=== PATIENT | male | born 1965 | race Hispanic/Latino ===

== ENCOUNTER 2017-09-09 08:11 | Emergency (ER) | payer BC ==
[2017-09-09 08:23] VITALS: BMI 31.6
[2017-09-09 08:24] VITALS: TEMP 97.9
--- NOTE | 2017-09-09 08:45 | ED PDOC ---
Arrival/HPI - General Chief Complaint: High Blood Pressure Time Seen by Provider: 09/09/17 08:25 Historian: Patient - History of Present Illness Narrative History of Present Illness (Text): 09/09/17 08:38 52 year old male, with past medical history of hypertension, presents to the Emergency department for high blood pressure since last night. Patient states he was feeling "sluggish" last night and noticed elevated blood pressure after measurement, bringing him to the Emergency department this morning. Patient informs compliance with his blood pressure medication bystolic. Patient denies any fever, chills, nausea, vomiting, diarrhea, abdominal pain, chest pain, palpitations, dyspnea, headache, dizziness, lightheadedness, shortness of breath or any other complaints. Patient admits drinking occasionally and is a light smoker. Time/Duration: 4-6 hours Symptom Onset: Gradual Symptom Course: Unchanged Activities at Onset: Light Context: Home Associated Symptoms (Text): 09/09/17 09:01 Patient states that he just didn't feel right last night and took his blood pressure and it was elevated so he decided to come to the emergency department today. He denies headache dizziness or lightheadedness. No chest pain palpitations or dyspnea. No abdominal pain nausea or vomiting. No numbness tingling or paresthesias. Past Medical History - Provider Review Nursing Documentation Reviewed: Yes - Cardiac Hx Cardiac Disorders: Yes Hx Hypertension: Yes - Pulmonary Hx Respiratory Disorders: No - Neurological Hx Neurological Disorder: No - HEENT Hx HEENT Disorder: No - Renal Hx Renal Disorder: No - Endocrine/Metabolic Hx Endocrine Disorders: No - Hematological/Oncological Hx Blood Disorders: No - Integumentary Hx Dermatological Disorder: No - Musculoskeletal/Rheumatological Hx Musculoskeletal Disorders: No - Gastrointestinal Hx Gastrointestinal Disorders: No - Genitourinary/Gynecological Hx Genitourinary Disorders: No - Psychiatric Hx Psychophysiologic Disorder: No Hx Substance Use: No - Surgical History Hx Orthopedic Surgery: Yes (right knee) Family/Social History - Physician Review Nursing Documentation Reviewed: Yes Family/Social History: No Known Family HX Smoking Status: Light Smoker < 10 Cigarettes Daily Hx Alcohol Use: No Hx Substance Use: No Allergies/Home Meds Allergies/Adverse Reactions: Allergies No Known Allergies Allergy (Verified 09/09/17 08:25) Home Medications: Home Meds Medication Instructions Recorded Confirmed Nebivolol [Bystolic] 5 mg PO DAILY 09/23/15 09/09/17 Review of Systems - Physician Review All systems were reviewed & negative as marked: Yes - Review of Systems Constitutional: Normal. absent: Fevers Eyes: absent: Vision Changes Respiratory: Normal. absent: SOB Cardiovascular: Normal. absent: Chest Pain, Palpitations Gastrointestinal: Normal. absent: Abdominal Pain, Diarrhea, Nausea, Vomiting Genitourinary Male: Normal Musculoskeletal: Normal Skin: Normal Neurological: Normal. absent: Headache, Dizziness Physical Exam Vital Signs Reviewed: Yes Vital Signs Temp Pulse Pulse Resp BP Pulse Ox 09/09/17 09:41 61 16 141/66 98 09/09/17 09:24 63 16 151/93 H 96 09/09/17 08:47 62 184/105 H 09/09/17 08:41 74 09/09/17 08:23 97.9 F 67 18 184/105 H 97 Temperature: Afebrile Blood Pressure: Hypertensive Pulse: Regular Respiratory Rate: Normal Appearance: Positive for: Well-Appearing, Non-Toxic, Comfortable Pain Distress: None Mental Status: Positive for: Alert and Oriented X 3 - Systems Exam Head: Present: Atraumatic, Normocephalic Pupils: Present: PERRL Extroacular Muscles: Present: EOMI Conjunctiva: Present: Normal Mouth: Present: Moist Mucous Membranes Pharnyx: No: ERYTHEMA, EXUDATE, TONSILS ENLARGED Neck: Present: Normal Range of Motion Respiratory/Chest: Present: Clear to Auscultation, Good Air Exchange. No: Respiratory Distress, Accessory Muscle Use Cardiovascular: Present: Regular Rate and Rhythm, Normal S1, S2. No: Murmurs Abdomen: No: Tenderness, Distention, Peritoneal Signs Back: Present: Normal Inspection Upper Extremity: Present: Normal Inspection. No: Cyanosis, Edema Lower Extremity: Present: Normal Inspection. No: Edema Neurological: Present: GCS=15, CN II-XII Intact, Speech Normal, Motor Func Grossly Intact Skin: Present: Warm, Dry, Normal Color. No: Rashes Psychiatric: Present: Alert, Oriented x 3, Normal Insight, Normal Concentration Medical Decision Making ED Course and Treatment: 09/09/17 08:46 Impression: 52 year old male presents to the Emergency department for elevated blood pressure. Plan: -- EKG -- Labs -- Chest X-ray -- Reassess and disposition Progress Notes: 09/09/17 08:47 09/09/17 09:04 EKG shows normal sinus rhythm rate approximately 65 with a right bundle branch block and no acute ST or T-wave changes 09/09/17 09:40 Symptoms improved. Blood pressure markedly improved. He will be given a prescription for clonidine and follow-up with . Follow up in ER as needed. - Lab Interpretations Lab Results: 09/09/17 08:35 09/09/17 08:35 Lab Results 09/09/17 08:35: Urine Color Yellow, Urine Appearance Clear, Urine pH 6.0, Ur Specific Brewster 1.010, Urine Protein Negative, Urine Glucose (UA) Negative, Urine Ketones Negative, Urine Blood Trace-lysed H, Urine Nitrate Negative, Urine Bilirubin Negative, Urine Urobilinogen 0.2, Ur Leukocyte Esterase Negative , Urine RBC 0 - 2, Urine WBC Negative, Urine Bacteria Trace 09/09/17 08:35: Sodium 141, Potassium 5.3 H, Chloride 106, Carbon Dioxide 26, Anion Gap 15, BUN 17, Creatinine 1.0, Est GFR ( Amer) > 60, Est GFR (Non- Af Amer) > 60, Random Glucose 113 H, Calcium 10.0, Total Bilirubin 0.4, AST 29, ALT 51, Alkaline Phosphatase 50, Lactate Dehydrogenase 448, Total Creatine Kinase 147, Troponin I < 0.01, Total Protein 7.4, Albumin 4.3, Globulin 3.1, Albumin/Globulin Ratio 1.4 09/09/17 08:35: WBC 10.6, RBC 5.34, Hgb 15.0, Hct 44.2, MCV 82.8, MCH 28.1, MCHC 33.9, RDW 13.2, Plt Count 234, MPV 9.5, Gran % 57.7, Lymph % (Auto) 30.4, Villalba % (Auto) 4.9, Eos % (Auto) 6.7 H, Baso % (Auto) 0.3, Gran # 6.09, Lymph # ( Auto) 3.2, Villalba # (Auto) 0.5, Eos # (Auto) 0.7, Baso # (Auto) 0.03 - RAD Interpretation Radiology Orders: 09/09/17 08:38 CHEST PORTABLE [RAD] Stat Chest 1 view shows no infiltrate effusion or cardiomegaly. Promotions Manager: Radiologist - Medication Orders Current Medication Orders: Discontinued Medications Clonidine HCl (Catapres) 0.2 mg PO ONCE ONE Stop: 09/09/17 08:39 Last Admin: 09/09/17 08:47 Dose: 0.2 mg MAR Pulse and Blood Pressure Document 09/09/17 08:47 [facility] (Rec: 09/09/17 08:48 [facility] [id number]) Pulse Pulse Rate (60-90) 62 Blood Pressure Blood Pressure (100/60-150/90) 184/105 - Scribe Statement The provider has reviewed the documentation as recorded by the Scribe Arya Rodrigues. All medical record entries made by the Scribe were at my direction and personally dictated by me. I have reviewed the chart and agree that the record accurately reflects my personal performance of the history, physical exam, medical decision making, and the department course for this patient. I have also personally directed, reviewed, and agree with the discharge instructions and disposition. Disposition/Present on Arrival - Present on Arrival Any Indicators Present on Arrival: No History of DVT/PE: No History of Uncontrolled Diabetes: No Urinary Catheter: No History of Decub. Ulcer: No History Surgical Site Infection Following: None - Disposition Have Diagnosis and Disposition been Completed?: Yes Diagnosis: Hypertension Disposition: HOME/ ROUTINE Disposition Time: 09:41 Patient Plan: Discharge Condition: IMPROVED Discharge Instructions (ExitCare): High Blood Pressure in Adults Prescriptions: cloNIDine [Catapres] 0.1 mg PO BID #14 tab Forms: [facility] (Telugu)
[2017-09-09 09:05] LABS: BASO # 0.03 K/mm3 (0.0-2.0); BASO % 0.3 % (0.0-3.0); EOS # 0.7 (0.0-0.7); EOS % 6.7 % (1.5-5.0); GRAN # 6.09 (1.4-6.5); GRAN % 57.7 % (50.0-68.0); LYMPH # 3.2 (1.2-3.4); LYMPH % 30.4 % (22.0-35.0); MEAN CELL VOLUME 82.8 fl (80.0-105.0); MEAN CORPUSCULAR HEMOGLOBIN 28.1 pg (25.0-35.0); MEAN CORPUSCULAR HGB CONC 33.9 g/dl (31.0-37.0); MEAN PLATELET VOLUME 9.5 fl (7.0-11.0); MONO # 0.5 (0.1-0.6); MONO % 4.9 % (1.0-6.0); RBC 5.34 10^6/uL (3.5-6.1); RED CELL DISTRIBUTION WIDTH 13.2 % (11.5-14.5); URINE BILIRUBIN NEGATIVE (NEGATIVE); URINE BLOOD TRACE-LYSED (NEGATIVE); URINE GLUCOSE (UA) NEGATIVE (NEGATIVE); URINE LEUKOCYTE ESTERASE NEGATIVE Leu/uL (NEGATIVE); URINE PROTEIN NEGATIVE mg/dL (<30 mg/dL); URINE UROBILINOGEN 0.2 E.U./dL (<1 E.U./dL); WHITE BLOOD COUNT 10.6 10^3/ul (4.5-11.0)
[2017-09-09 09:13] LABS: ALB/GLOB RATIO 1.4 (1.1-1.8); ALBUMIN 4.3 g/dL (3.0-4.8); ALT/SGPT 51 U/L (7-56); AST/SGOT 29 U/L (17-59); BLOOD UREA NITROGEN 17 mg/dL (7-21); GFR AFRICAN-AMERICAN > 60; GFR NON-AFRICAN AMERICAN > 60
--- NOTE | 2017-09-09 09:22 | RAD ---
HISTORY: htn COMPARISON: 12/08/2011 FINDINGS: LUNGS: No active pulmonary disease. PLEURA: No significant pleural effusion identified, no pneumothorax apparent. CARDIOVASCULAR: Normal. OSSEOUS STRUCTURES: No significant abnormalities. VISUALIZED UPPER ABDOMEN: Normal. OTHER FINDINGS: None. IMPRESSION: No active disease.
[2017-09-09 09:23] LABS: URINE APPEARANCE CLEAR (CLEAR); URINE COLOR YELLOW (YELLOW)
[2017-09-09 09:24] LABS: TROPONIN I < 0.01 ng/mL
[2017-09-09 09:25] VITALS: RESP 16
[2017-09-09 09:35] LABS: URINE BACTERIA TRACE (NEG); URINE RBC 0 - 2 /hpf (0-2); URINE WBC NEGATIVE /hpf (0-6)
[2017-09-09 09:41] VITALS: BP 141/66; PULSE 61; O2SAT 98
--- NOTE | 2017-09-10 00:34 | CARD ---
APPROVED REPORT EKG Measurement Heart [id number] <Conclusion> Normal sinus rhythm Possible Left atrial enlargement Incomplete right bundle branch block Borderline ECG
== END 2017-09-09 10:10 | disposition home or self-care (01) ==
LOC: ED 08:11
DX: I10 Essential (primary) hypertension (principal); F17.210 Nicotine dependence, cigarettes, uncomplicated

== ENCOUNTER 2017-10-31 09:47 | Day surgery (SDC) | payer BC ==
[2017-10-26 11:02] VITALS: BMI 31.1
[2017-10-31 10:34] LABS: BASO # 0.03 K/mm3 (0.0-2.0); BASO % 0.4 % (0.0-3.0); EOS # 0.6 (0.0-0.7); EOS % 6.9 % (1.5-5.0); GRAN # 3.46 (1.4-6.5); GRAN % 43.3 % (50.0-68.0); LYMPH # 3.6 (1.2-3.4); LYMPH % 44.8 % (22.0-35.0); MEAN CELL VOLUME 82.2 fl (80.0-105.0); MEAN CORPUSCULAR HEMOGLOBIN 28.4 pg (25.0-35.0); MEAN CORPUSCULAR HGB CONC 34.5 g/dl (31.0-37.0); MONO # 0.4 (0.1-0.6); MONO % 4.6 % (1.0-6.0); RBC 5.29 10^6/uL (3.5-6.1); RED CELL DISTRIBUTION WIDTH 12.9 % (11.5-14.5)
[2017-10-31 10:43] LABS: BLOOD UREA NITROGEN 13 mg/dL (7-21); CALCIUM 9.4 mg/dL (8.4-10.5); GFR AFRICAN-AMERICAN > 60; GFR NON-AFRICAN AMERICAN > 60
[2017-10-31 11:00] LABS: INR 0.99 (0.93-1.08); PARTIAL THROMBOPLASTIN TIME 30.2 Seconds (25.1-36.5); PROTHROMBIN TIME 11.4 SECONDS (9.4-12.5)
[2017-10-31] MEDS ORDERED: Midazolam 2 MG/2 ML VIAL ONE (13:12)
[2017-10-31] MEDS ORDERED: Lidocaine 1% Inj (20ml) ONE (13:13)
[2017-10-31] MEDS ORDERED: Oxycodone/Acetaminophen 5/325 mg Tab PO PRN (13:43)
[2017-10-31] MEDS ORDERED: Sodium Chloride 0.45% 1,000 ML IV SCH (13:45)
[2017-10-31 14:24] VITALS: O2SAT 95
[2017-10-31 14:40] VITALS: PULSE 63; RESP 20; TEMP 97.7
[2017-10-31 15:07] VITALS: BP 112/67
--- NOTE | 2017-10-31 15:48 | US ---
PROCEDURE: Ultrasound-guided right thyroid fine needle aspiration biopsy. CLINICAL HISTORY: Solitary 1.9 cm hypoechoic right thyroid nodule. Evaluate for malignancy. PHYSICIAN(S): Jaswant Orozco M.D. TECHNIQUE: The relative risks and indications for the procedure were explained to the patient and consent obtained. The patient was placed supine on the stretcher with the neck extended and preliminary sonography of the thyroid performed. This reveal a solitary 1.9 cm hypoechoic nodule in the right thyroid. The remainder of the thyroid parenchyma is homogeneous in echotexture. The neck was prepped and draped in the usual sterile fashion. Conscious sedation and monitoring were provided throughout the procedure by a nurse. 1% Xylocaine was used to anesthetize the skin and soft tissues at the access site. Three passes with a 22-gauge needle were performed under ultrasound guidance for fine needle aspiration of the 1.9 cm hypoechoic nodule in the right thyroid. The slides were reviewed by pathology and deemed adequate. The patient tolerated the procedure well. IMPRESSION: 1. Ultrasound guided fine needle aspiration of a 1.9 cm hypoechoicnodule in the right thyroid.
== END 2017-10-31 15:30 | disposition home or self-care (01) ==
LOC: SDS 09:47
PROVIDERS: ATTEND Radiology Vascular & Interventional Radiology
DX: E04.1 Nontoxic single thyroid nodule (principal); I10 Essential (primary) hypertension
CPT/HCPCS: 10022; 36415; 80048; 85025; 85610; 85730; 88173; 88305; J2250; J2405; J3010; J7030